=== PATIENT | male | born 1955 | race Caucasian/White ===

== ENCOUNTER 2024-10-23 21:51 | Emergency (ER) | payer MEDICARE, SELFPAY ==
[2024-10-23 21:54] VITALS: BP 150/100
[2024-10-23 23:33] VITALS: BP 153/85; BMI 25.3
--- NOTE | 2024-10-24 01:40 | ED.GENMED ---
History of Present Illness
General
Chief Complaint: Nose Bleed
Source: patient and spouse
Exam Limitations: none
Time Seen by Provider: 10/24/24 01:07
Nursing documentation reviewed up to this point in time: agreed with
History of Present Illness
History of Present Illness:
69-year-old male presents with nosebleed, recently underwent palatal reconstruction at [facility] for cancer postoperatively had a right-sided nosebleed which improved, he did have an NG tube sutured into his right nare, tonight had a nosebleed after
urinating which stopped spontaneously on no blood thinners, surgical site is not bleeding, he has no other bleeding or rash,
Past History
Past History
ED Past Medical History: Cancer
ED Past Surgical History: Other (Facial reconstruction of the palate)
Social History
Tobacco: Non-smoker
Alcohol: None
Drug: None
Personal:
Living: with family
Employment: Employed
Review of Systems
Review of Systems
All Other Systems: Not applicable
Constitutional: Denies fever
EENT: Reports other (Right sided nose)
Phy Exam
Physical Exam
Physical Exam:
Physical Exam
General: no apparent distress, not acutely ill
Neck: Small amount of dried blood in lateral portion of the right nare, hard palate surgical site clean dry and intact
Heart: s1/s2 regular rate and rhythm, no murmur. equal radial pulses.
Lungs: no acute respiratory distress. clear bilaterally
Neuro: alert and oriented. no focal neurological deficits
Skin: no rash
Psychiatric: well kept. interactive and cooperative
Extremities: no edema
Course
Vital Signs
Initial and Last Documented VS:
Initial Vital Signs
Temp Pulse Resp BP Pulse Ox
98.5 F 71 18 150/100 100
10/23/24 21:54 10/23/24 21:54 10/23/24 21:54 10/23/24 21:54 10/23/24 21:54
Last Documented Vital Signs
Temp Pulse Resp BP Pulse Ox
98.5 F 79 16 153/85 98
10/23/24 21:54 10/23/24 23:33 10/23/24 23:33 10/23/24 23:33 10/23/24 23:33
MDM/Problems Addressed
Differential Diagnosis Includes:
Epistaxis, local trauma,
MDM/Problems Addressed:
Nosebleed
Chronic conditions affecting care:
Head and neck cancer
Acute Exacerbation and/or Progression of Chronic Illness: Cancer
*Pulse Oximetry
Patient hypoxic: no
*Critical Care Note
Total Time (30-74mins, 75-104mins- exclusive of procedures): Not Applicable
Update Note
Update Note:
Update patient with no active bleeding looks well here continue saline, will give him a nasal clip, with Neosporin
ED Attending Note
-
Portions of this chart may have been created with voice recognition software.� Occasional wrong word or��sound alike� substitutions may have occurred due to the inherent limitations of voice recognition software.
Discharge Plan
Departure
Patient Disposition: Home (Routine Discharge)
Date of Disposition: 10/24/24
Time of Disposition: 01:32
Patient with high blood pressure during this ER visit?: No
Condition: Good
Covid-19: Not Applicable
Discharge Problem:
Bleeding nose
Instructions: Nosebleeds (DC)
Referrals:
Sg Nguyen I., DO [Family Provider] -
Interventions
Interventions:
*Risk Screen - Suicide Last Done: 10/23/24 21:54
*General Assessment Last Done: 10/23/24 21:54
*Neglect/Abuse Screening Last Done: 10/23/24 21:54
*ED- Fall Risk Assessment Last Done: 10/23/24 23:33
*ED COVID-19 Vaccine History Last Done: 10/23/24 21:54
ED-EENT Assessment Last Done: 10/23/24 23:33
Discharge Date and Time
Print Language: BURKINAN
[2024-10-24 02:02] VITALS: BP 145/82
== END 2024-10-24 02:03 | disposition home or self-care (01) ==
LOC: EMR 21:51
PROVIDERS: EMERGENCY PHYSICIAN Emergency Medicine; FAMILY PHYSICIAN Internal Medicine
DX: R04.0 Epistaxis (principal)
CPT/HCPCS: 99282

== ENCOUNTER 2025-02-06 13:55 | Outpatient (RCR) | payer MEDICARE, SELFPAY | END 2025-02-06 23:59 | disposition home or self-care (01) | LOC: RPT 13:55 | PROVIDERS: ATTENDING PHYSICIAN Radiology Radiation Oncology; FAMILY PHYSICIAN Internal Medicine | DX: C05.1 Malignant neoplasm of soft palate (principal); Z73.6 Limitation of activities due to disability; D37.01 Neoplasm of uncertain behavior of lip; D37.05 Neoplasm of uncertain behavior of pharynx; D37.09 Neoplasm of uncertain behavior of other specified sites of the oral cavity; L90.5 Scar conditions and fibrosis of skin; R29.3 Abnormal posture; M62.81 Muscle weakness (generalized); R60.0 Localized edema; M25.512 Pain in left shoulder; M54.2 Cervicalgia | CPT/HCPCS: 97110; 97140; 97163; 97530 ==

== ENCOUNTER 2025-03-11 07:05 | Outpatient (RCR) | payer MEDICARE, SELFPAY | END 2025-03-11 23:59 | disposition home or self-care (01) | LOC: RPT 07:05 | PROVIDERS: ATTENDING PHYSICIAN Radiology Radiation Oncology; FAMILY PHYSICIAN Internal Medicine | DX: C05.1 Malignant neoplasm of soft palate (principal); Z73.6 Limitation of activities due to disability; D37.01 Neoplasm of uncertain behavior of lip; D37.05 Neoplasm of uncertain behavior of pharynx; D37.09 Neoplasm of uncertain behavior of other specified sites of the oral cavity; L90.5 Scar conditions and fibrosis of skin; R29.3 Abnormal posture; M62.81 Muscle weakness (generalized); R60.0 Localized edema; M25.512 Pain in left shoulder; M54.2 Cervicalgia | CPT/HCPCS: 97110; 97140; 97530 ==

== ENCOUNTER 2025-04-15 08:58 | Outpatient (RCR) | payer MEDICARE, SELFPAY | END 2025-04-15 23:59 | disposition home or self-care (01) | LOC: RPT 08:58 | PROVIDERS: ATTENDING PHYSICIAN Radiology Radiation Oncology; FAMILY PHYSICIAN Internal Medicine | DX: C05.1 Malignant neoplasm of soft palate (principal); Z73.6 Limitation of activities due to disability; D37.01 Neoplasm of uncertain behavior of lip; D37.05 Neoplasm of uncertain behavior of pharynx; D37.09 Neoplasm of uncertain behavior of other specified sites of the oral cavity; L90.5 Scar conditions and fibrosis of skin; R29.3 Abnormal posture; M62.81 Muscle weakness (generalized); R60.0 Localized edema; M25.512 Pain in left shoulder; M54.2 Cervicalgia | CPT/HCPCS: 97110; 97112; 97140 ==

== ENCOUNTER 2025-05-12 08:56 | Outpatient (RCR) | payer MEDICARE, SELFPAY | END 2025-05-12 14:02 | disposition home or self-care (01) | LOC: RPT 08:56 | PROVIDERS: ATTENDING PHYSICIAN Radiology Radiation Oncology; FAMILY PHYSICIAN Internal Medicine | DX: C05.1 Malignant neoplasm of soft palate (principal); Z73.6 Limitation of activities due to disability; D37.01 Neoplasm of uncertain behavior of lip; D37.05 Neoplasm of uncertain behavior of pharynx; D37.09 Neoplasm of uncertain behavior of other specified sites of the oral cavity; L90.5 Scar conditions and fibrosis of skin; R29.3 Abnormal posture; M62.81 Muscle weakness (generalized); R60.0 Localized edema; M25.512 Pain in left shoulder; M54.2 Cervicalgia | CPT/HCPCS: 97112; 97140; 97530 ==

== ENCOUNTER 2025-06-17 06:21 | Day surgery (SDC) | payer MEDICARE, SELFPAY | END 2025-06-17 10:20 | disposition home or self-care (01) | LOC: GI 06:21 | PROVIDERS: ATTENDING PHYSICIAN Specialist; FAMILY PHYSICIAN Internal Medicine | DX: K20.0 Eosinophilic esophagitis (principal) | CPT/HCPCS: 43239; 88305 ==